=== PATIENT | female | born 1960 | race Caucasian/White ===

== ENCOUNTER → 2017-06-07 | Outpatient (CLI) | payer OTHER ==
[~2017-06-07] MED LIST: ALLEGRA-D 24 H1 EACH PO; SINGULAIR10 MG; VASOTEC5 MG; ZANTAC150 M3; ZITHROMAX500 MG PO
== END | disposition home or self-care (01) ==
LOC: SONOGRAMA 12:19
DX: E04.1 Nontoxic single thyroid nodule (principal); E05.90 Thyrotoxicosis, unspecified without thyrotoxic crisis or storm

== ENCOUNTER 2017-06-13 07:29 | Outpatient (CLI) | payer OTHER | END 2017-06-13 07:45 | disposition home or self-care (01) | LOC: LAB 07:29 | DX: E11.65 Type 2 diabetes mellitus with hyperglycemia (principal); E10.65 Type 1 diabetes mellitus with hyperglycemia; E03.8 Other specified hypothyroidism; E05.90 Thyrotoxicosis, unspecified without thyrotoxic crisis or storm; E78.2 Mixed hyperlipidemia; E55.9 Vitamin D deficiency, unspecified; D64.89 Other specified anemias; N39.0 Urinary tract infection, site not specified; E21.2 Other hyperparathyroidism; E24.8 Other Cushing's syndrome; E28.310 Symptomatic premature menopause; E22.1 Hyperprolactinemia; E27.49 Other adrenocortical insufficiency ==

== ENCOUNTER 2017-06-26 08:02 | Outpatient (CLI) | payer OTHER | END 2017-06-26 08:04 | disposition home or self-care (01) | LOC: NUCLEAR 08:02 | DX: E05.90 Thyrotoxicosis, unspecified without thyrotoxic crisis or storm (principal) | CPT/HCPCS: 78012; A9531 ==

== ENCOUNTER 2017-06-27 08:16 | Outpatient (CLI) | payer OTHER | END 2017-06-27 08:21 | disposition home or self-care (01) | LOC: NUCLEAR 08:16 | DX: E05.90 Thyrotoxicosis, unspecified without thyrotoxic crisis or storm (principal) | CPT/HCPCS: 78013; A9512 ==

== ENCOUNTER 2017-10-20 08:03 | Outpatient (CLI) | payer OTHER | END 2017-10-20 08:23 | disposition home or self-care (01) | LOC: NUCLEAR 08:03 | DX: E05.00 Thyrotoxicosis with diffuse goiter without thyrotoxic crisis or storm (principal) | CPT/HCPCS: 79005; A9517 ==

== ENCOUNTER 2017-12-02 06:19 | Emergency (ER) | payer OTHER ==
[~2017-12-02] VITALS: Ht 149.9 cm; Wt 47.6 kg
[2017-12-02] MEDS ORDERED: B-1100 MG (06:56)
[2017-12-02] MEDS ORDERED: GLIMEPIRIDE1 MG (06:56)
== END 2017-12-02 17:28 | disposition home or self-care (01) ==
LOC: ER 06:19
DX: J22 Unspecified acute lower respiratory infection (principal); J11.1 Influenza due to unidentified influenza virus with other respiratory manifestations

== ENCOUNTER 2018-03-12 09:29 | Emergency (ER) | payer OTHER ==
[~2018-03-12] VITALS: Ht 152.4 cm; Wt 49.9 kg
[~2018-03-12 09:29] MED LIST changes: +B-1100 MG; +GLIMEPIRIDE1 MG
[2018-03-12] MEDS ORDERED: ASPIR 8181 MG PO (10:01)
[2018-03-12] MEDS ORDERED: PANTOPRAZOLE SO40 MG PO (10:01)
[2018-03-12] MEDS ORDERED: METOPROLOL SUCC50 MG PO (10:02)
[2018-03-12] MEDS ORDERED: METHIMAZOLE10 MG PO (10:02)
[2018-03-12] MEDS ORDERED: SINGULAIR 4MG4 MG (10:02)
== END 2018-03-12 13:46 | disposition home or self-care (01) ==
LOC: ER 09:29
DX: R10.13 Epigastric pain (principal)

== ENCOUNTER 2020-08-25 12:11 | Emergency (ER) | payer OTHER ==
[~2020-08-25] VITALS: Ht 154.9 cm; Wt 67.6 kg
[~2020-08-25 12:11] MED LIST changes: +ASPIR 8181 MG PO; +METHIMAZOLE10 MG PO; +METOPROLOL SUCC50 MG PO; +PANTOPRAZOLE SO40 MG PO; +SINGULAIR 4MG4 MG
[2020-08-25] MEDS ORDERED: TESSALON PERLE100 M1 PO (17:07)
[2020-08-25] MEDS ORDERED: ZITHROMAX500 MG PO (17:07)
[2020-08-25] MEDS ORDERED: MUCINEX DM ER1 EAC1 PO (17:07)
== END 2020-08-25 17:21 | disposition home or self-care (01) ==
LOC: ER 12:11
DX: J06.9 Acute upper respiratory infection, unspecified (principal); Z11.52 Encounter for screening for COVID-19

== ENCOUNTER 2023-05-22 07:57 | Outpatient (CLI) | payer OTHER ==
[~2023-05-22 07:57] MED LIST changes: +MUCINEX DM ER1 EAC1 PO; +TESSALON PERLE100 M1 PO
== END 2023-05-22 08:02 | disposition home or self-care (01) ==
LOC: RX STUDY 07:57
DX: R13.10 Dysphagia, unspecified (principal)